=== PATIENT | female | born 1995 | race Caucasian/White ===

== ENCOUNTER 2023-07-25 13:58 | Emergency (ER) | payer SELFPAY ==
[~2023-07-25] VITALS: Ht 154.9 cm; Wt 62.1 kg
[2023-07-25 14:00] VITALS: BP 108/75; PULSE 117; RESP 18; TEMP 98.2; O2SAT 100
[2023-07-25] MEDS ORDERED: ONDANSETRON 4 MG/2 ML VIAL ONE (14:38)
[2023-07-25] MEDS: FAMOTIDINE 20 MG/2 ML VIAL IVP ONE (15:31)
[2023-07-25] MEDS: ONDANSETRON 4 MG/2 ML VIAL IVP ONE (15:31)
[2023-07-25] MEDS: NACL 0.9% 1,000 ML IV ONE ×2 (15:32→15:33)
[2023-07-25 15:36] LABS: BASOPHILS % (AUTO) 0.2 % (0.0-2.0); EOSINOPHILS # (AUTO) 0.1 K/uL (0-0.4); EOSINOPHILS % (AUTO) 0.9 % (0.0-4.0); HEMATOCRIT 47.2 % (36-48); LYMPHOCYTES # (AUTO) 0.6 K/uL (2.5-16.5); LYMPHOCYTES % (AUTO) 4.9 % (20.5-51.1); MEAN CORPUSCULAR HEMOGLOBIN 32 pg (27-31); MEAN CORPUSCULAR HGB CONC 34 g/dL (33-37); MONOCYTES # (AUTO) 0.2 K/uL (0.8-1.0); NEUTROPHILS # (AUTO) 11.5 K/uL (1.8-7.7); PLATELET COUNT (AUTO) 288 K/uL (140-450); RED BLOOD CELL COUNT(AUTO) 5.02 MIL/uL (4.20-5.40); RED CELL DISTRIBUTION WIDTH 12.6 % (11.6-13.7); WHITE BLOOD COUNT (AUTO) 12.5 K/uL (4.8-10.8)
[2023-07-25 15:37] VITALS: TEMP 98.2
[2023-07-25 15:51] LABS: ANION GAP 13.9 (8-16); CALCIUM 9.4 mg/dL (8.5-10.1); CARBON DIOXIDE 26.6 mmol/L (21-32); CREATININE 0.8 mg/dL (0.6-1.3); POTASSIUM 3.5 mmol/L (3.5-5.1)
[2023-07-25 15:54] LABS: FLU A ANTIGEN negative (NEGATIVE); FLU B ANTIGEN NEGATIVE (NEGATIVE)
[2023-07-25 15:58] LABS: LACTIC ACID 1.4 mmol/L (0.4-2.0)
[2023-07-25 16:23] LABS: ALBUMIN 4.4 g/dL (3.4-5.0); BILIRUBIN,DIRECT 0.1 mg/dL (0.0-0.3); TOTAL BILIRUBIN 0.6 mg/dL (0.0-1.0); TOTAL PROTEIN, SERUM 10.6 g/dL (6.4-8.2)
[2023-07-25] MEDS ORDERED: cefTRIAXone 1,000 MG VIAL ONE ×2 (16:50→17:36)
[2023-07-25 16:55] LABS: APPEARANCE,URINE CLEAR (CLEAR); BILIRUBIN,URINE NEGATIVE (NEGATIVE); BLOOD, URINE 1+ (NEGATIVE); COLOR,URINE YELLOW (YELLOW); LEUKOCYTE ESTERASE ,URINE NEGATIVE (NEGATIVE); NITRITE, URINE NEGATIVE (NEGATIVE); PROTEIN,URINE NEGATIVE (NEGATIVE); UGLUCOSE NEGATIVE (NEGATIVE); UROBILINOGEN,URINE 0.2 EU/dL (0.2 - 1)
[2023-07-25] MEDS: LOPERAMIDE 2 MG CAP PO ONE (18:12)
[2023-07-25] MEDS ORDERED: LOPE-289 PO (18:20)
[2023-07-25] MEDS ORDERED: FAMO-90 PO (18:20)
[2023-07-25] MEDS ORDERED: ONDA-188 SL (18:20)
[2023-07-25 19:28] VITALS: BP 106/59; PULSE 100; RESP 16; O2SAT 100
== END 2023-07-25 19:28 | disposition home or self-care (01) ==
LOC: MED 13:58
DX: R10.84 Generalized abdominal pain (principal); Z20.822 Contact with and (suspected) exposure to COVID-19; R11.10 Vomiting, unspecified; R19.7 Diarrhea, unspecified; E86.0 Dehydration; Z79.899 Other long term (current) drug therapy
CPT/HCPCS: 36415; 74177; 80048; 80076; 81003; 83605; 83690; 85025; 87040; 87426; 87804; 96361; 96365; 96375; 99285; J0696; J2405; J3490; J7030; Q9967